=== PATIENT | male | born 1995 | race Caucasian/White ===

== ENCOUNTER 2018-06-09 18:47 | Emergency (ER) | payer BC ==
--- NOTE | 2018-06-09 18:49 | UC ---
Ear Complaint HPI - HPI Summary HPI Summary: both ear feel clogged--hears snapping in left ear - History of Current Complaint Chief Complaint: UCEar Stated Complaint: EAR ACHE Time Seen by Provider: 06/09/18 19:00 Hx Obtained From: Patient Onset/Duration: Sudden Onset, Lasting Days Severity Initially: Mild Severity Currently: Mild Associated Signs/Symptoms: Positive: Hearing Loss - left - Allergies/Home Medications Allergies/Adverse Reactions: Allergies Allergy/AdvReac Type Severity Reaction Status Date / Time No Known Allergies Allergy Verified 06/09/18 19:04 Home Medications: Home Medications Methylphenidate HCl [Concerta] 18 mg PO DAILY 06/09/18 [History Confirmed ] PMH/Surg Hx/FS Hx/Imm Hx Previously Healthy: Yes - Family History Known Family History: Positive: None - Social History Occupation: Student Lives: With Family Alcohol Use: None Substance Use Type: None Review of Systems Constitutional: Negative Skin: Negative Eyes: Negative ENT: Ear Ache Respiratory: Negative Cardiovascular: Negative Gastrointestinal: Negative Genitourinary: Negative Motor: Negative Neurovascular: Negative Musculoskeletal: Negative Neurological: Negative Psychological: Negative Is Patient Immunocompromised?: No All Other Systems Reviewed And Are Negative: Yes Physical Exam Triage Information Reviewed: Yes Appearance: Well-Appearing, No Pain Distress, Well-Nourished Vital Signs Reviewed: Yes Eye Exam: Normal Eyes: Positive: Conjunctiva Clear ENT Exam: Normal ENT: Positive: Normal ENT inspection, Hearing grossly normal, Pharynx normal, TMs normal - after cerumen removal, Uvula midline. Negative: Nasal congestion, Tonsillar swelling, Trismus, Muffled voice, Hoarse voice, Dental tenderness, Sinus tenderness Dental Exam: Normal Neck exam: Normal Neck: Positive: Supple, Nontender Respiratory Exam: Normal Respiratory: Positive: Chest non-tender, Lungs clear, Normal breath sounds, No respiratory distress, No accessory muscle use Cardiovascular Exam: Normal Cardiovascular: Positive: RRR, No Murmur, Pulses Normal, Brisk Capillary Refill Abdominal Exam: Normal Musculoskeletal Exam: Normal Musculoskeletal: Positive: Strength Intact, ROM Intact Neurological Exam: Normal Neurological: Positive: Alert, Muscle Tone Normal Psychological Exam: Normal Skin Exam: Normal Re-Evaluation - Re-Evaluation First Eval Change: Improved - hearing is better---but still feels fluid inside of ear Ear Complaint Course/Dx - Course Course Of Treatment: Zyrtec D, Tylenol, ibuprofen follow at [facility] - Differential Dx/Diagnosis Provider Diagnoses: Resolved Bilated Cerumen impaction, congestion, elevated blood pressure related to current complaint Discharge - Sign-Out/Discharge Documenting (check all that apply): Patient Departure All imaging exams completed and their final reports reviewed: No Studies - Discharge Plan Condition: Stable Disposition: HOME Prescriptions: Cetirizine HCl/Pseudoephedrine [Zyrtec-D Tablet] 1 each PO BID #[id number] Patient Education Materials: Antihistamine/Decongestant (By mouth), Cerumen Impaction (ED) Referrals: [facility] [Outside] - If Needed - Billing Disposition and Condition Condition: STABLE Disposition: Home - Attestation Statements Provider Attestation: Per institutional requirements, I have reviewed the chart, however, I was not consulted specifically or made aware of this patient by the midlevel provider. I did not personally evaluate, interact with , or disposition this patient.
[2018-06-09 19:03] VITALS: BP 160/85
[2018-06-09] MEDS ORDERED: Ibuprofen TAB* 600 MG PO ONE (19:40)
== END 2018-06-09 19:50 | disposition home or self-care (01) ==
LOC: UCEAST 18:47
DX: H61.23 Impacted cerumen, bilateral (principal); H93.8X3 Other specified disorders of ear, bilateral; R03.0 Elevated blood-pressure reading, without diagnosis of hypertension
CPT/HCPCS: 99203; A9270-GY; G0463

== ENCOUNTER 2018-08-25 12:40 | Emergency (ER) | payer BC ==
[2018-08-25 13:00] VITALS: BP 142/79
--- NOTE | 2018-08-25 13:12 | UC ---
Cardiac HPI - HPI Summary HPI Summary: Patient is a 23-year-old [place] student who presents today with left upper chest pain and left upper neck pain and pain in the trapezius area. He woke up today at 10:00 with pain and then tried to make himself comfortable but woke up again at 11:30 and plan to come to the urgent care He did a lot of hiking yesterday in snow, usually does not do a lot of exercise on a daily basis and later on went to the [employer] party and had about 5+ drinks of alcohol. 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 Pain is worse with moving his neck in a particular direction.. Denies any shortness of breath. Pain is better in a certain position and worse and certain other position Denies any fever, chills, cough, Denies any abdominal pain , nausea or vomiting , diarrhea or constipation. He also reports left medial kelly/calf pain since today morning. No swelling or bruising was noted he is not treating for any marathon but noticed it after his hike yesterday. - History of Current Complaint Chief Complaint: UCChestPain Stated Complaint: CHEST PAIN Time Seen by Provider: 08/25/18 12:46 Hx Obtained From: Patient Pain Intensity: 5 - Allergy/Home Medications Allergies/Adverse Reactions: Allergies Allergy/AdvReac Type Severity Reaction Status Date / Time No Known Allergies Allergy Verified 08/25/18 13:00 Home Medications: Home Medications Cetirizine HCl [Zyrtec] 10 mg PO DAILY WITH MEAL 08/25/18 [History Confirmed ] PMH/Surg Hx/FS Hx/Imm Hx - Additional Past Medical History Additional PMH: No significant past medical history Previously Healthy: Yes - Surgical History Surgical History: None - Family History Known Family History: Positive: None - Social History Alcohol Use: Daily Substance Use Type: Marijuana Smoking Status (MU): Never Smoked Tobacco Review of Systems All Other Systems Reviewed And Are Negative: Yes Constitutional: Positive: Negative Skin: Positive: Negative Eyes: Positive: Negative ENT: Positive: Negative Respiratory: Positive: Negative Cardiovascular: Positive: Chest Pain Gastrointestinal: Positive: Negative Genitourinary: Positive: Negative Motor: Positive: Negative Neurovascular: Positive: Negative Musculoskeletal: Positive: Negative Neurological: Positive: Negative Psychological: Positive: Negative Is Patient Immunocompromised?: No Physical Exam - Summary Physical Exam Summary: Physical Exam: Const: Appears well. No signs of apparent distress present. Alert and oriented x 3. Musculo: Walks with a normal gait. Head/Face: Atraumatic, normocephalic on inspection. Eyes: EOMI and PERRLA in both eyes. Conjunctivae clear. No discharge noted ENT: Hearing normal, TM normal appearing bilaterally . Respiratory: Respirations are unlabored. Lungs clear to auscultation bilaterally, no wheezing , rhonchi or rales noted . CVS: No costochondral tenderness noted. Regular rate and Rhythm, S1S2 normal , no murmurs identified. Extremities: Peripheral circulation is grossly normal. Pulses 2+ Abdomen : Soft non tender , nondistended , Bowel sounds present . No guarding , rebound tenderness or rigidity noted. Skin: No lesions or rash located on the upper extremities or on the lower extremities. Neuro: Cranial nerves II to XII intact, motor and sensory intact. DTR Intact bilaterally. Mood is normal. Affect is normal. C-spine: No midline tenderness noted. There is left paraspinal tenderness noted in the lower cervical spine. There is also mild reproduction of pain with palpation of the trapezius muscle. Left kelly: Slight tenderness to palpation is noted in the lower one third of the kelly but most tenderness is in the medial gastrocnemius muscle. He is able to do single leg and heel raise on that side without much pain Vital Signs: Initial Vital Signs Temp 98.8 F 08/25/18 12:54 Pulse 71 08/25/18 12:54 Resp 18 08/25/18 12:54 BP 142/79 08/25/18 12:54 Pulse Ox 99 08/25/18 12:54 Diagnostics - EKG Cardiac Rate: NL Cardiac Rhythm: Sinus: Normal Ectopy: None ST Segment: Normal Summary of EKG Findings: Normal EKG with normal sinus rhythm without any ST elevation or hypertrophy - Assessment/Plan Course Of Treatment: During the visit today, we obtained the EKG which was within normal limits . We discussed that his symptoms are most likely musculoskeletal in nature secondary to cervical paraspinal and trapezius strain likely secondary to lifting someone in the [employer] party last night And not remembering it under the influence of alcohol. We also discussed that he can go to ER for further lab testing but plan to hold off for now. Left calf pain appears to be secondary to the gastrocnemius strain. Advised him to take some rest and take ibuprofen as needed for pain control. Patient expressed understanding . - Clinical Impression Provider Diagnoses: Left cervical/trapezius strain. Left medial gastrocnemius muscle strain Discharge - Sign-Out/Discharge Documenting (check all that apply): Patient Departure All imaging exams completed and their final reports reviewed: No Studies - Discharge Plan Condition: Stable Disposition: HOME Patient Education Materials: Cervical Strain (ED) Referrals: [facility] [Medical Doctor] - 1 Week No Primary Care Phys,[facility] [Primary Care Provider] - 1 Week Additional Instructions: Take ibuprofen 600 mg as needed for pain up to 3 times a day. Warm compresses as discussed for the neck muscles Follow up with your primary care doctor or at [facility] in 1 week Patients blood pressure slightly high in Urgent care today , plan follow up with PCP for better control Return to Urgent care / ER if symptoms get worse. - Billing Disposition and Condition Condition: STABLE Disposition: Home
== END 2018-08-25 13:41 | disposition home or self-care (01) ==
LOC: UCEAST 12:40
DX: S16.1XXA Strain of muscle, fascia and tendon at neck level, initial encounter (principal); S86.812A Strain of other muscle(s) and tendon(s) at lower leg level, left leg, initial encounter; S46.912A Strain of unspecified muscle, fascia and tendon at shoulder and upper arm level, left arm, initial encounter; R07.89 Other chest pain; X58.XXXA Exposure to other specified factors, initial encounter; Y93.01 Activity, walking, marching and hiking; Y92.9 Unspecified place or not applicable
CPT/HCPCS: 93005; 99211; G0463